=== PATIENT | male | born 2000 | race Caucasian/White ===

== ENCOUNTER 2022-04-04 15:08 | Emergency (ER) | payer SELFPAY ==
[~2022-04-04] VITALS: Ht 177.8 cm; Wt 99.8 kg
[2022-04-04 15:12] VITALS: BP 110/67
--- NOTE | 2022-04-04 15:17 | NUR ---
Patient wheelchair assisted to bed 1.
[2022-04-04] MEDS ORDERED: NACL 0.9% 1,000 ML IV ONE ×2 (15:20→17:10)
[2022-04-04] MEDS ORDERED: ACETAMINOPHEN EXTRA STRENGTH 500 MG TAB PO ONE (15:20)
[2022-04-04 15:54] LABS: BASOPHILS # (AUTO) 0.1 K/uL (0.00-0.22); BASOPHILS % (AUTO) 0.5 % (0.0-2.0); EOSINOPHILS # (AUTO) 0.1 K/uL (0-0.4); EOSINOPHILS % (AUTO) 0.5 % (0.0-4.0); HEMATOCRIT 42.9 % (36-52); LYMPHOCYTES # (AUTO) 0.5 K/uL (2.0-11.5); LYMPHOCYTES % (AUTO) 4.6 % (20.5-51.1); MEAN CORPUSCULAR HEMOGLOBIN 29 pg (27-31); MEAN CORPUSCULAR HGB CONC 35 g/dL (33-37); MEAN CORPUSCULAR VOLUME 84.1 fL (80-94); MONOCYTES # (AUTO) 0.8 K/uL (0.8-1.0); MONOCYTES % (AUTO) 7.5 % (1.7-9.3); NEUTROPHILS # (AUTO) 9.3 K/uL (1.8-7.7); NEUTROPHILS % (AUTO) 86.9 % (42.2-75.2); PLATELET COUNT (AUTO) 201 K/uL (140-450); RED CELL DISTRIBUTION WIDTH 12.9 % (11.6-13.7); WHITE BLOOD COUNT (AUTO) 10.7 K/uL (4.8-10.8)
--- NOTE | 2022-04-04 16:09 | NUR ---
21M presents to ED with c/o SOB, headache, chills, fever, body aches and diarrhea since today. Pt reports a constant, aching like, 6/10 generalized body pain. Pt reports having 1 episode of diarrhea today, denies N/V. Pt states he took tylenol and Robutussin at home with no relief. Pt reports being in contact with sick family at home. Pt placed on bedside monitor, O2 sat at 100% upon assessment.
[2022-04-04 16:12] LABS: ALBUMIN 4.3 g/dL (3.4-5.0); ANION GAP 14.8 (8-16); CARBON DIOXIDE 24.4 mmol/L (21-32); CREATININE 1.2 mg/dL (0.6-1.3); MAGNESIUM 1.3 mg/dL (1.8-2.4); POTASSIUM 3.2 mmol/L (3.5-5.1); TOTAL BILIRUBIN 1.2 mg/dL (0.0-1.0)
[2022-04-04] MEDS ORDERED: POTASSIUM CHLORIDE 10 MEQ TABER PO ONE ×2 (17:10)
[2022-04-04] MEDS ORDERED: MAG SULF 2000 MG/WATER PREMIX 50 ML IV ONE (17:10)
[2022-04-04] MEDS ORDERED: POTASSIUM CHLORIDE 20% 40 MEQ/15 ML UDC PO ONE (17:35)
[2022-04-04] MEDS ORDERED: MULT-2308 PO (19:39)
[2022-04-04] MEDS ORDERED: IBUP-1842 PO (19:39)
[2022-04-04] MEDS ORDERED: BENZ200C4 PO (19:39)
[2022-04-04 19:55] VITALS: BP 107/53
--- NOTE | 2022-04-04 19:55 | NUR ---
Patient discharged with v/s stable. Written and verbal after care instructions given and explained. Patient alert, oriented and verbalized understanding of instructions. Ambulatory with steady gait. All questions addressed prior to discharge. ID band removed. Patient advised to follow up with PMD. Rx of BENZONATATE, IBUPROFEN, AND MULTIVITAMIN given. Patient educated on indication of medication including possible reaction and side effects. Opportunity to ask questions provided and answered. DX: HYPOMAGNESEMIA, HYPOKALEMIA, COVID-19
[2022-04-04 19:57] LABS: BARBITURATE, URINE NEGATIVE ng/ml (NEG <=200); BENZODIAZEPINE, URINE NEGATIVE ng/mL (NEG <=200); CANNABINOID, URINE POSITIVE ng/mL (NEG <=50); COCAINE, URINE NEGATIVE ng/mL (NEG <=300); OPIATE, URINE NEGATIVE ng/mL (NEG <=2000); PHENCYCLIDINE SCREEN,URINE NEGATIVE ng/mL (NEG <=25)
== END 2022-04-04 19:55 | disposition home or self-care (01) ==
LOC: MED 15:08
DX: U07.1 COVID-19 (principal); E83.42 Hypomagnesemia; E87.6 Hypokalemia; R06.02 Shortness of breath
CPT/HCPCS: 36415; 71045; 80053; 80305; 83735; 85025; 85379; 96361; 96365; 99285; G0482; J3475; J7030; Q0092; 93005